=== PATIENT | male | born 1975 | race Hispanic/Latino ===

== ENCOUNTER → 2018-08-05 | Day surgery (SDC) | payer BC ==
[~2018-08-05] MED LIST: ACETAMINOPHEN/CODEINE 300MG - 30MG TAB ONE; BELLADONNA/OPIUM 60 MG SUPP PR ONE; BUPIVACAINE 0.25% 30ML SDV INJ ONE; CEFAZOLIN SOD 1 GM/NS 50ML 50 ML IV ONE; CRANBERRY200 MG; DEXAMETHASONE SOD PHOS INJ 4 MG/ML VIAL ONE; FENTANYL CITRATE/PF 100MCG/2 ML INJ ONE; IOPAMIDOL 610MG/1ML 300 MG/ML VIAL IV ONE; KETOROLAC TROMETHAMINE 30 MG/ML VIAL ONE; LIDOCAINE HCL 2% LOCAL INJ 5 ML SDV VIAL INJ ONE; MIDAZOLAM HCL 2 MG/2 ML VIAL ONE; MULTI-VITAMIN1 EACH; MUPIROCIN 2% OINT 22 GM TUBE ONE; ONDANSETRON HCL INJ 2MG/ML 2ML 2 MG/ML VIAL ONE; PROPOFOL IV EMULSION 10 MG/ML 20 ML VIAL ONE; RHINOCORT; SEVOFLURANE INHAL SOLN 250 ML PEN BTL ONE; ZINC; ZYRTEC10 M3
[2018-08-05 12:40] VITALS: BP 121/82
--- NOTE | 2018-09-07 16:25 | Operative Report ---
DATE OF PROCEDURE: 08/05/2018 SURGEON: [place] Dorado MD PREOPERATIVE DIAGNOSES: 1. Desires sterilization. 2. Phimosis. 3. Persistent microhematuria. POSTOPERATIVE DIAGNOSES: 1. Desires sterilization. 2. Phimosis. 3. Persistent microhematuria. OPERATIONS PERFORMED: 1. Bilateral mastectomy (separate procedure performed for the permanent sterilization). 2. Circumcision (separate procedure performed for the phimosis). 3. Regional nerve blocks (separate procedure performed for postoperative pain control and not required for the actual performance of surgery which is done under general anesthesia). 4. Cystourethroscopy with bilateral ureteral catheterization and retrograde ureteropyelography (separate procedure performed for microhematuria). 5. Interpretation of retrograde ureteropyelography. 6. Supervision of fluoroscopy, no radiologist present. ANESTHESIA: General. COMPLICATIONS: None. CLINICAL SUMMARY: Jasper Abernathy is a 43-year-old man with present microhematuria and phimosis. He also desires permanent sterilization and elected for the above procedures. He understands the risks of bleeding, infection, injury to adjacent structures, need for additional procedures, and elected to proceed. OPERATIVE PROCEDURE IN DETAIL: Informed consent was verified. Jasper Abernathy was properly identified, taken to the operating room, placed on the cystoscopy table in supine position. Anesthesia was uneventfully begun. The patient's genitalia were then prepared and draped in usual sterile fashion. The left vas was isolated. The no-scalpel vasectomy instruments were utilized. A stab incision was made and spread to the vas, was delivered, it was isolated. The spermatic cord was infiltrated proximally with Marcaine without epinephrine for postoperative pain control. This has not required for the actual performance of the surgery which was done under general anesthesia. We doubly hemoclipped the distal stump. We divided the vas. We then resected out approximately 2 cm segment, doubly hemoclipped the proximal stump, and divided the vas. The hemostasis was excellent. The testis was brought to its normal anatomical position and the spermatic cord was brought to its normal anatomical position. Copious irrigation was performed. We infiltrated circumferentially around the incision. An identical procedure was then performed on the right-hand side with similar findings. Marcaine without epinephrine was then utilized to infiltrate circumferentially around the base of the penis as well as in the region of the dorsal penile nerves. This was again done for postoperative pain control and not required for actual performance of the surgery which was done under general anesthesia. A circumferential incision was then made overlying the kerr of the glans penis. The foreskin was fully retracted and secondary incision was made approximately 5 mm away from the kerr of glans penis along the inner preputial skin. A sleeve performed. Foreskin was removed. There was scarring of the tip of the foreskin as well as significant scarring at the level of the frenulum. We verified hemostasis and the incision was approximated with 4-0 chromic suture with an excellent cosmetic result. The patient was then carefully gently repositioned in dorsal lithotomy position with all pressure points well padded. He was redraped. The 22.5-Turkish cystoscope sheath with the visual obturator in place was atraumatically inserted. The patient's urethra was guided down the unremarkable distal urethra through the normal sphincteric region into the patient's prostate bed, which exhibited some friable mucosa of the posterior proximal prostatic urethra. There were no suspicious lesions. Panendoscopy of the bladder revealed mild trabeculations, but no tumors, no stones, no diverticula. Normally positioned and configured ureteral orifices were identified. An 18-Turkish catheter was used to cannulate each ureter and retrograde ureteropyelography was performed. Interpretation of retrograde ureteropyelography: Contrast was instilled in a retrograde fashion bilaterally. There were no tumors, no stones, and no diverticula. Unobstructed drainage was observed bilaterally fluoroscopically. The patient's bladder then drained and cystoscope withdrawn. All sterile dressings were applied of bacitracin ointment followed by Xeroform gauze, followed by loose-fitting Jazmin, a belladonna and opium suppository was placed revealing a 20 g prostate that is smooth, non-fluctuant without any nodules. The patient was then uneventfully reversed from anesthesia and taken to recovery room in stable condition. Explicit postoperative instructions were given. We will follow the patient up in the office. [place] Dorado MD [place]/MODErich /[id number] cc: Sim Knutson, DO
== END | disposition home or self-care (01) ==
LOC: OR 07:14
PROVIDERS: ATTEND Urology
DX: N47.1 Phimosis (principal); Z30.2 Encounter for sterilization; R31.29 Other microscopic hematuria; R35.1 Nocturia
CPT/HCPCS: 54150; 55250; 74420; 88302; 88304; 93005; C1758 ×2; J0690; J1100; J1885; J2001; J2250; J2405; J2704; Q9967

== ENCOUNTER → 2018-08-12 | Outpatient (CLI) | payer BC ==
[~2018-08-12] MED LIST changes: -ACETAMINOPHEN/CODEINE 300MG - 30MG TAB ONE; -BELLADONNA/OPIUM 60 MG SUPP PR ONE; -BUPIVACAINE 0.25% 30ML SDV INJ ONE; -CEFAZOLIN SOD 1 GM/NS 50ML 50 ML IV ONE; -DEXAMETHASONE SOD PHOS INJ 4 MG/ML VIAL ONE; -FENTANYL CITRATE/PF 100MCG/2 ML INJ ONE; +IOPAMIDOL 370 MG/ML 200 ML INFUS..BTL INJ ONE; -IOPAMIDOL 610MG/1ML 300 MG/ML VIAL IV ONE; -KETOROLAC TROMETHAMINE 30 MG/ML VIAL ONE; -LIDOCAINE HCL 2% LOCAL INJ 5 ML SDV VIAL INJ ONE; -MIDAZOLAM HCL 2 MG/2 ML VIAL ONE; -MUPIROCIN 2% OINT 22 GM TUBE ONE; -ONDANSETRON HCL INJ 2MG/ML 2ML 2 MG/ML VIAL ONE; -PROPOFOL IV EMULSION 10 MG/ML 20 ML VIAL ONE; -SEVOFLURANE INHAL SOLN 250 ML PEN BTL ONE; +SODIUM CHLORIDE 0.9% 250ML 250 ML ONE
--- NOTE | 2018-08-12 15:04 | Diagnostic Imaging Report ---
ADDENDUM #1 ADDENDUM: The prostate measures up to 5.1 x 3.5 x 3.7 cm (AP x TV x SI), although evaluation is somewhat limited on CT. Estimated prostate volume of 34.5 cc based on ellipsoid prostate volume calculation. Signed by: Dr. Keegan Box MD on 08/12/2018 4:00 PM ORIGINAL REPORT EXAM: CT abdomen and pelvis without and with contrast - Hematuria protocol INDICATION: Microscopic hematuria. COMPARISON: None. TECHNIQUE: Abdomen and pelvis were scanned in prone position without and with contrast. Delayed phase imaging obtained. Coronal and sagittal reformations were obtained. CT Hematuria protocol was performed. IV CONTRAST: 150 mL of Isovue 370 ORAL CONTRAST: Water RADIATION DOSE: Total DLP: 866.4 mGy*cm Dose modulation, iterative reconstruction, and/or weight based adjustment of the mA/kV was utilized to reduce the radiation dose to as low as reasonably achievable. COMPLICATIONS: None FINDINGS: LINES and TUBES: None. LOWER THORAX: Patchy opacities within the right middle lobe and lingula, likely representing atelectasis in this patient in prone positioning. HEPATOBILIARY: No focal hepatic lesions. No biliary ductal dilation. GALLBLADDER: No radio-opaque stones or sludge. No wall thickening. SPLEEN: No splenomegaly. PANCREAS: No focal masses or ductal dilatation. ADRENALS: No adrenal nodules KIDNEYS/URETERS: Kidneys enhance symmetrically. No hydronephrosis. No evidence of solid mass. There is a simple appearing cyst within the right mid pole kidney, measuring up to 1.6 cm. The ureters are opacified and demonstrate no specific evidence of urothelial lesion. GI TRACT: No abnormal distention, wall thickening, or evidence of bowel obstruction. Appendix is unremarkable. PELVIS: The bladder is opacified on delayed images and demonstrates no evidence of urothelial lesion. The prostate is enlarged measuring up to 5.1 cm. LYMPH NODES: No lymphadenopathy. VESSELS: Minimal scattered atherosclerotic changes of the abdominal aorta. PERITONEUM / RETROPERITONEUM: No free air or fluid. BONES AND SOFT TISSUES: No acute bony findings or suspicious lytic or blastic lesions. IMPRESSION: No evidence of renal mass, stone, or urothelial lesion. Prostatomegaly measuring 5.1 cm. Signed by: Dr. Keegan Box MD on 08/12/2018 3:01 PM
== END ==
LOC: CT 12:22
PROVIDERS: ATTEND Urology
DX: R31.29 Other microscopic hematuria (principal)
CPT/HCPCS: 74178; J7050; Q9967

== ENCOUNTER → 2018-08-17 | Outpatient (CLI) | payer BC ==
[~2018-08-17] MED LIST changes: -IOPAMIDOL 370 MG/ML 200 ML INFUS..BTL INJ ONE; -SODIUM CHLORIDE 0.9% 250ML 250 ML ONE
--- NOTE | 2018-08-17 17:52 | Diagnostic Imaging Report ---
Exam: Testicular ultrasound with Doppler Clinical History: Left-sided testicular pain status post vasectomy and circumcision on 08/05/2018. Epididymitis. Findings: Sonographic evaluation of the testicles. Both testes are normal in echogenicity and size without intratesticular mass. Right testicle measures 4.5 x 2.0 x 2.9 cm in the left testicle measures 4.2 x 2.0 x 3.1 cm. Normal bilateral Doppler flow is demonstrated. Negative for hydrocele or varicocele. There is a nonspecific, well-circumscribed hypoechoic solid lesion within the right epididymis, measuring up to 0.7 cm. Both epididymides are otherwise normal in appearance. The right epididymis measures 1.1 x 0.9 x 0.8 cm in the left epididymis measures 1.0 x 0.6 x 0.9 cm. Normal Doppler flow. Incidental nonenlarged bilateral inguinal lymph nodes. Impression: No sonographic evidence of testicular torsion. No hyperemia within the epididymides bilaterally to suggest epididymitis. Nonspecific, well-circumscribed hypoechoic solid lesion within the right epididymis, measuring up to 0.7 cm. Differential includes sperm granuloma post vasectomy, as well as infectious or inflammatory etiologies. Follow-up ultrasound may be considered. Signed by: Dr. Keegan Box MD on 08/17/2018 5:48 PM
== END ==
LOC: US 15:30
PROVIDERS: ATTEND Urology
DX: N45.1 Epididymitis (principal)
CPT/HCPCS: 76870; 93976